=== PATIENT | male | born 1950 | race Caucasian/White ===

== ENCOUNTER 2016-06-24 08:42 | Emergency (ER) | payer OTHER ==
[~2016-06-24] VITALS: Ht 180.3 cm; Wt 94.3 kg
[~2016-06-24 08:42] MED LIST: ADVAIR DISKUS 21 DSK PO; AFLURIA IM; GOOD SENSE ASP325 MG PO; GUAIFENESIN-COD10 ML PO; NASONEX0.05 MG/Ac NAS; PERCOCET 325 MG1 TA2 PO; PERCOCET 5-3251 EACH PO; PRINIVIL 5MG5 MG PO; PROAIR HFA8.5 GM INH; TESSALON PERLE100 M1 PO; TYLENOL EXTRA500 M1 PO; ZITHROMAX Z PA250 MG PO; ZITHROMAX250 M2 PO
--- NOTE | 2016-06-24 09:16 | ED INFLUENZA/URI COMPLAINT ---
History of Present Illness General Chief Complaint: Upper Respiratory Sx/Fever Stated Complaint: COUGH, CONGESTION, X 1 WEEK Source: patient Exam Limitations: no limitations Vital Signs & Intake/Output Vital Signs & Intake/Output ED Intake and Output 06/25 0000 06/24 1200 Intake Total 0 Output Total Balance 0 Intake, Oral 0 Patient 208 lb Weight Allergies Coded Allergies: cortisone (Mild, SWELLING 06/24/16) Reconcile Medications Acetaminophen 500 MG TABLET 500 MG PO Q6 PRN pain may purchase over the counter Albuterol Sulfate (Proair Hfa) 8.5 GM HFA.AER.AD 2 PUF INH Q4-6 PRN PRN DYSPNEA Aspirin 325 MG TAB 1 TAB PO DAILY HEART (Reported) Azithromycin (Zithromax) 250 MG TABLET 1 DP PO AD PNEUMONIA 2 the first day followed by 1 for days 2-5 Azithromycin (Zithromax) 250 MG TABLET 1 DP PO AD BRONCHITIS 2 the first day followed by 1 for days 2-5 Benzonatate (Tessalon Perle) 100 MG CAPSULE 1 CAP PO TID PRN COUGH FLUTICASONE/SALMETEROL (Advair 250-50 Diskus) 250 MCG-50 MCG/DOSE BLST.W.DEV 1 PUFF PO BID BREATHING PROBLEMS (Reported) Lisinopril (Prinivil) 5 MG TABLET 1 TAB PO DAILY BP (Reported) Methylprednisolone. (Medrol) 4 MG TAB.DS.PK 1 DP PO AD INFLAMMATION 6 on day 1 then reduce by one tablet daily until gone Mometasone Furoate (Nasonex) 0.05 MG/Actuation SPR 2 NS ALEJANDRA DAILY SINUSITIS Oxycodone HCl/Acetaminophen (Percocet 5-325 MG Tablet) 1 EACH TABLET 1-2 TAB PO Q6P PRN PAIN Robitussin AC (Guaifenesin-Codeine Syrup) 10 ML LIQUID 10 ML PO Q6 PRN COUGH Triage Note: TRIAGE: PT TO ER C/C PRODUCTIVE COUGH WITH DARK GREEN PHLEGM REPORTED, CHEST CONGESTION, DULL/CONSTANT CHEST PAIN X 1-2 WKS. PMHX INCLUDES CARDIAC STENTS AND COPD. Triage Nurses Notes Reviewed? yes Onset: Gradual Duration: week(s): (1) Timing: recent history Severity: mild No Modifying Factors: none Associated Symptoms: cough, fever/chills, shortness of breath HPI: 66 year old male presents with 1 week week of cough, shortness of breath, congestion with subjective fever and chills. Denies travel or sick contacts but states that his is immunocompromised at home and wants to make sure he doesn't make her sick. He reports heavy feeling in his chest with breathing. No radiating of pain. Past History Travel History Traveled to [place] past 21 day No Medical History Any Pertinent Medical History? see below for history Neurological: NONE EENT: NONE Cardiovascular: CAD, hypertension, hyperlipidemia Respiratory: COPD, obstructive sleep apnea, USES CPAP Gastrointestinal: NONE Hepatic: NONE Renal: NONE Musculoskeletal: disk herniation Psychiatric: NONE Endocrine: NONE Blood Disorders: NONE Cancer(s): NONE MAINTENANCE CLERK/Reproductive: NONE History of MRSA: No History of VRE: No History of CDIFF: No Tetanus Vaccine: 02/13/13 Surgical History Surgical History: non-contributory Psychosocial History Who do you live with Spouse Services at Home None What is your primary language Romansh Tobacco Use: Quit >30 days ago ETOH Use: occasional use Illicit Drug Use: denies illicit drug use Family History Hx Contributory? No Review of Systems Review of Systems Constitutional: Reports: fever (SUBJECTIVE), weakness. Denies: chills. EENTM: Reports: no symptoms. Respiratory: Reports: cough, short of breath, sputum production. Cardiovascular: Denies: chest pain, palpitations, peripheral edema. GI: Denies: abdominal pain. Genitourinary: Denies: discharge, dysuria, frequency. Musculoskeletal: Reports: no symptoms. Skin: Reports: no symptoms. Neurological/Psychological: Reports: no symptoms. Hematologic/Endocrine: Denies: bruising, bleeding, polyuria, polydipsia. Immunologic/Allergic: Denies: splenectomy. All Other Systems: Reviewed and Negative Physical Exam Physical Exam General Appearance: well developed/nourished, alert, awake, mild distress Head: atraumatic, normal appearance Eyes: Bilateral: normal appearance, PERRL, EOMI. Ears, Nose, Throat: normal ENT inspection, hearing grossly normal, pharynx normal, B/L CERUMEN IMPACTION Neck: normal inspection, supple, full range of motion Respiratory: decreased breath sounds, wheezing Cardiovascular: regular rate/rhythm Peripheral Pulses: 2+ radial (R), 2+ radial (L) Gastrointestinal: normal bowel sounds, soft, non-tender Extremities: normal inspection, normal capillary refill, normal range of motion, no edema Neurologic/Psych: no motor/sensory deficits, awake, alert, oriented x 3 Skin: intact, normal color, warm/dry Core Measures Severe Sepsis Present: No Septic Shock Present: No Progress Differential Diagnosis: pneumonia, BRONCHITIS, INFLUENZA Plan of Care: Orders Procedure Date/time Status RT ED ORDERS 06/24 946 Complete XRY-CHEST XRAY, PA AND LATERAL 06/24 945 Active EKG 06/24 849 Active DUONEB, EKG, CXR. (PROSPER ORONA,MAKENZIE) Diagnostic Imaging: Viewed by Me: Radiology Read. Discussed w/RAD: Radiology Read. Initial ED EKG: SINUS BRADYCARDIA Comments: PATIENT: ABDIRIZAK ROUSE PRESENT AGE: 66 PATIENT ACCOUNT NO: [id number] : 51 LOCATION: [facility] ORDERING PHYSICIAN: MAKENZIE CHENG MD SERVICE DATE: 06/24/16 EXAM TYPE: RAD - XRY-CHEST XRAY, PA AND LATERAL EXAMINATION: XR CHEST CLINICAL INFORMATION: Cough, green sputum production. Suspected pneumonia. COMPARISON: Chest done on 12/28/2013. TECHNIQUE: 2 views of the chest were obtained. FINDINGS: Subtle left lower lobar airspace disease is present, appear chronic, unchanged since 12/28/2013, likely represent pleural parenchymal scar. The remainder of the lung fletcher otherwise appear clear. The cardiac silhouette is within normal limits. There is no pleural effusion present. Postsurgical changes of spinal fusion is noted within the visualized neck. Postsurgical changes of likely cholecystectomy is noted within the visualized upper abdomen. Mild degenerative spondylosis is seen in the spine, unchanged. IMPRESSION: No acute cardiopulmonary disease, essentially appears unchanged since 12/28/2013. DICTATED BY: LAYNE DO MD DATE/TIME DICTATED:06/24/161036 INSPECTOR PROCESS:TAVIA DATE/TIME TRANSCRIBED:06/24/161036 CONFIDENTIAL, DO NOT COPY WITHOUT APPROPRIATE AUTHORIZATION. <Electronically signed in Other Vendor System> SIGNED BY: LAYNE DO MD 06/24/16 1127 Departure Departure Time of Disposition: 1058 Disposition: HOME OR SELF CARE Condition: Stable Clinical Impression Primary Impression: Bronchitis Referrals: VIKTOR VO MD (PCP/Family) Additional Instructions: USE YOUR ALBUTEROL DIRECTED. TAKE THE ANTIBIOTIC AND PREDNISONE AND FOLLOW UP WITH YOUR DOCTOR IN THE OFFICE. RETURN NEEDED. Departure Forms: Customer Survey General Discharge Information Prescriptions: Current Visit Scripts Azithromycin (Zithromax) 1 DP PO AD #6 TAB 2 the first day followed by 1 for days 2-5 Methylprednisolone. (Medrol) 1 DP PO AD #1 DP 6 on day 1 then reduce by one tablet daily until gone
[2016-06-24] MEDS ORDERED: ZITHROMAX250 M2 PO (11:10)
[2016-06-24] MEDS ORDERED: MEDROL4 M2 PO (11:10)
[2016-06-24 11:11] VITALS: BP 126/79
--- NOTE | 2016-06-24 11:27 | RADIOLOGY REPORT ---
EXAMINATION: XR CHEST CLINICAL INFORMATION: Cough, green sputum production. Suspected pneumonia. COMPARISON: Chest done on 12/28/2013. TECHNIQUE: 2 views of the chest were obtained. FINDINGS: Subtle left lower lobar airspace disease is present, appear chronic, unchanged since 12/28/2013, likely represent pleural parenchymal scar. The remainder of the lung fletcher otherwise appear clear. The cardiac silhouette is within normal limits. There is no pleural effusion present. Postsurgical changes of spinal fusion is noted within the visualized neck. Postsurgical changes of likely cholecystectomy is noted within the visualized upper abdomen. Mild degenerative spondylosis is seen in the spine, unchanged. IMPRESSION: No acute cardiopulmonary disease, essentially appears unchanged since 12/28/2013.
== END 2016-06-24 11:15 ==
LOC: ERH 08:42
DX: J40 Bronchitis, not specified as acute or chronic (principal); R07.89 Other chest pain
CPT/HCPCS: 1263; 93005; 93010